=== PATIENT | male | born 1960 | race Hispanic/Latino ===

== ENCOUNTER 2017-03-17 21:00 | Inpatient (IN) | payer OTHER, MEDICAID ==
[2017-03-17 21:23] VITALS: O2SAT 98
--- NOTE | 2017-03-17 21:26 | C.PDOC ---
History Of Present Illness Pt was transferred here for psychiatric admission. Pt was medically cleared at the referring facility. Time Seen by Provider: 03/17/17 21:19 Chief Complaint (Nursing): Psychiatric Evaluation History Per: Patient Onset/Duration Of Symptoms: Days Current Symptoms Are (Timing): Still Present Modifying Factor(s): Alcohol Severity: Moderate Associated Symptoms: Depression Additional History Per: Prior Records Past Medical History Reviewed: Historical Data, Nursing Documentation, Vital Signs Vital Signs: Last Vital Signs Temp 98.2 F 03/17/17 21:23 Pulse 84 03/17/17 21:23 Resp 18 03/17/17 21:23 BP 150/92 H 03/17/17 21:23 Pulse Ox 98 03/17/17 21:26 - Medical History PMH: Hypothyroidism Other PMH: Alcohol abuse Family History: States: Unknown Family Hx - Social History Hx Alcohol Use: Yes Hx Substance Use: No - Immunization History Hx Tetanus Toxoid Vaccination: No Hx Influenza Vaccination: No Hx Pneumococcal Vaccination: No Review Of Systems Cardiovascular: Negative for: Chest Pain Respiratory: Negative for: Shortness of Breath Gastrointestinal: Negative for: Vomiting, Abdominal Pain Neurological: Negative for: Weakness Physical Exam - Physical Exam Appears: Non-toxic, No Acute Distress Skin: Normal Color, Warm, Dry Head: Atraumatic, Normacephalic Eye(s): bilateral: PERRL Neck: Normal ROM, Supple Cardiovascular: Rhythm Regular Respiratory: Normal Breath Sounds, No Accessory Muscle Use Gastrointestinal/Abdominal: Soft Extremity: Normal ROM Neurological/Psych: Oriented x3, Normal Motor, Normal Sensation ED Course And Treatment O2 Sat by Pulse Oximetry: 98 Pulse Ox Interpretation: Normal Disposition - Disposition Disposition: HOSPITALIZED Disposition Time: 21:27 Condition: STABLE - Clinical Impression Clinical Impression: Alcohol abuse, Depression Decision To Admit - Pt Status Changed To: Hospital Disposition Of: Inpatient - Admit Certification Admit to Inpatient:: After my assessment, the patient will require hospitalization for at least two midnights. This is because of the severity of symptoms shown, intensity of services needed, and/or the medical risk in this patient being treated as an outpatient. - InPatient: Physician Admission Certification: I certify that this patient requires 2 or more midnights of care for the following reason:: Psych - . Bed Request Type: Psychiatry Admitting Physician: Sina Upton Patient Diagnosis: Alcohol abuse, Depression
[2017-03-17] MEDS ORDERED: Fluticasone-Salmeterol 250-50mcg Diskus INH SCH (22:00)
--- NOTE | 2017-03-17 22:00 | PCM.BM ---
<Destinee Martínez - Last Filed: 03/17/17 21:59> Treatment Plan Problems - Problems identified on initial assessmt Depression Date Initiated: 03/17/17 Time Initiated: 21:59 Assessment reference: NA Status: Active Comment: lives in intermediate/ETOH abuse Treatment assets and liabiliti Patient Assests: cooperative, self-reliant, ADL independent, negotiates basic needs Patient Liabilities: relationship conflicts, substance abuse, medical problems - Milieu Protocol Maintain good personal hygiene: daily Encourage regular showers, daily Remind patient to perform daily oral care Conduct patient checks and document Observation sheet: Q15 minutes Maintain personal safety: every shift Educate patient to report safety concerns to staff, every shift Monitor environment for contraband/sharps Medication safety: Monitor for expected outcome, potential side effects: every shift, Assess barriers to learning: every shift, Assess readiness for medication education: every shift <Sina Upton - Last Filed: 03/25/17 11:23> - Diagnosis (1) Schizoaffective disorder Status: Acute Interventions: 03/25/17 11:23 * Assess/adjust medications daily and /or as needed * See patient on an individual basis 7x/week to assess status of hallucinations * Discuss risks, benefits, side effects and alternatives of medications *
[2017-03-17] MEDS ORDERED: Naproxen 550 mg Tab PO PRN (22:04)
[2017-03-17] MEDS ORDERED: Albuterol HFA 90 mcg/actuation (8 g) INH PRN ×2 (22:11→22:30)
[2017-03-17] MEDS: Fluticasone-Salmeterol 250-50mcg Diskus INH SCH (23:21)
[2017-03-18] MEDS: Levothyroxine 25 MCG TAB PO SCH (06:29)
[2017-03-18] MEDS: Fluticasone-Salmeterol 250-50mcg Diskus INH SCH ×2 (07:47→21:21)
[2017-03-18] MEDS: Pantoprazole 40 mg EC Tab PO SCH (09:16)
--- NOTE | 2017-03-18 15:03 | PCM.PSYCH ---
Initial Psychiatric Evaluation - Initial Psychiatric Evaluation Type of Admission: Voluntary Chief Complaint (in patient's own words): " I am tired" History of Present Illness and Precipitating Events: The patient is seen, chart reviewed and case discussed. 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 Patient was brought from a medical facility for symptoms of depression. Patient admits to history of bipolar, schizophrenia and alcohol abuse. Patient reports that he used to drink up to a case of beer on a daily basis for many years but currently drinks approximately 2 (40oz beer) daily. Patient smokes 1PPD (Tobacco) for many years. Admits to use of heroin and cocaine intranasal years ago and marijuana many years ago During the encounter, patient reports that he is doing well and denies any hallucination, suicidal ideation, homicidal ideation but admits to decrease energy. Patient had a flat affect and was very constricted Patient has been to an inpatient psychiatry 2 years ago, where he was diagnosed with bipolar Past Psych Hx: Bipolar, alcohol abuse PMHx:Hypothyroidism Family Psych Hx: denies Current Medications: Active Medications Generic Name Dose Route Start Last Admin Trade Name Freq PRN Reason Stop Dose Admin Albuterol 1 puff 03/17/17 22:30 Ventolin Hfa 90 Mcg/Actuation (8 G) INH RQ4 PRN Shortness of Breath Amlodipine Besylate 5 mg 03/18/17 10:00 03/18/17 09:16 Norvasc PO 5 mg DAILY KATHIE Administration Benztropine Mesylate 1 mg 03/17/17 22:00 03/17/17 23:22 Cogentin PO Not Given HS KATHIE Chlorpromazine 100 mg 03/17/17 22:00 03/17/17 23:22 Thorazine PO Not Given HS KATHIE Lamotrigine 200 mg 03/18/17 22:00 Lamictal PO HS KATHIE Levothyroxine Sodium 25 mcg 03/18/17 06:30 03/18/17 06:29 Synthroid PO 25 mcg DAILY@0630 KATHIE Administration Lorazepam 1 mg 03/17/17 22:11 03/18/17 09:16 Ativan PO 1 mg Q6 PRN Administration Anxiety Naproxen 550 mg 03/17/17 22:04 Anaprox Ds PO Q12 PRN Pain, moderate (4-7) Pantoprazole Sodium 40 mg 03/18/17 10:00 03/18/17 09:16 Protonix Ec Tab PO 40 mg DAILY KATHIE Administration Pneumococcal Polyvalent Vaccine 0.5 ml 03/19/17 10:10 Pneumovax 23 Vaccine IM 03/19/17 10:11 .ONCE ONE Propranolol HCl 40 mg 03/18/17 10:00 03/18/17 09:42 Inderal PO 40 mg BID KATHIE Administration Fluticasone/Salmeterol 1 puff 03/17/17 22:00 03/18/17 07:47 Advair Diskus 250/50 INH 1 puff RQ12 KATHIE Administration Past Psychiatric History - Past Psychiatric History Previous Treatment History: Inpatient Pertinent Medical Hx (Current Medical&Sleep Prob, Allergies): Allergies Allergy/AdvReac Type Severity Reaction Status Date / Time Penicillins Allergy Verified 03/17/17 21:10 Advair Diskus 250/50 1 puff INH BID 03/17/17 Aspirin 325 mg PO BID 03/17/17 Benztropine 1 mg PO HS 03/17/17 Cholecalciferol 1,000 units PO DAILY 03/17/17 Lamotrigine 200 mg PO HS 03/17/17 Levothyroxine 25 mcg PO DAILY 03/17/17 Paliperidone 234 mg IM 03/17/17 Propranolol 40 mg PO BID 03/17/17 Protonix 40 mg PO DAILY 03/17/17 Spiriva 18 mcg PO DAILY 03/17/17 Thorazine 100 mg PO HS 03/17/17 raNITIdine 150 mg PO BID 03/17/17 Review of Systems - Neurological Neurological: UNREMARKABLE - Psychiatric Psychiatric: Depression. absent: Auditory Hallucinations, Change in Appetite, Hallucinations, Homicidal Ideation, Suicidal Ideation, Visual Hallucinations, Tactile Hallucinations Mental Status Examination - Personal Presentation Personal Presentation: Looks stated age - Affect Affect: Constricted, Depressed - Motor Activity Motor Activity: Calm - Reliability in Providing Information Reliability in Providing Information: Fair - Speech Speech: Organized - Mood Mood: Depressed - Formal Thought Process Formal Thought Process: No Impairment - Obsessions/Compulsions Obsessions: No Compulsions: No - Cognitive Functions Orientation: Person, Place Sensorium: Alert Attention/Concentration: Attentive Judgement: Imparied, as evidence by: Lack of insight into illness - Strength & Assets Inventory Strength & Assets Inventory: Cooperative DSM 5 DX - DSM 5 DSM 5 Diagnosis: Bipolar disorder Schizophrenia Depression - Recommended/Plan of Treatment Treatment Recommendations and Plan of Treatment: Cogentin 1mg PO HS Thorazine 100mg PO HS Ativan 1mg PO Q6H prn Lamotrigine 20mg PO HS Hypothyroidism: Synthroid 25mcg PO daily HTN:Norvasc 5mg PO daily As needed medications Attend group activities and self-help groups [facility] and [place] Refer to IOP 33 mins Projected ELOS: 4 Prognosis: Good with treatment Discharge Plan and Discharge Criteria: Referral to IOP/ therapy - Smoking Cessation Smoking Cessation Initiated: No
[2017-03-19] MEDS: Levothyroxine 25 MCG TAB PO SCH (06:10)
[2017-03-19] MEDS: Pantoprazole 40 mg EC Tab PO SCH (09:31)
[2017-03-19] MEDS: Fluticasone-Salmeterol 250-50mcg Diskus INH SCH ×2 (09:36→21:04)
[2017-03-19] MEDS ORDERED: Influenza Vaccine 60 mcg/0.5 mL SYR (4YR UP) IM ONE (10:00)
[2017-03-19] MEDS ORDERED: Pneumococcal 23-Valent Vaccine IM ONE (10:10)
[2017-03-20] MEDS: Levothyroxine 25 MCG TAB PO SCH (06:07)
[2017-03-20] MEDS: Fluticasone-Salmeterol 250-50mcg Diskus INH SCH ×2 (08:03→20:11)
[2017-03-20] MEDS: Pantoprazole 40 mg EC Tab PO SCH (09:21)
[2017-03-20] MEDS ORDERED: Aluminum Hydroxide/Magnesium Hydroxide Susp (30 mL) PO PRN (17:58)
[2017-03-21] MEDS: Levothyroxine 25 MCG TAB PO SCH (08:06)
[2017-03-21] MEDS: Fluticasone-Salmeterol 250-50mcg Diskus INH SCH ×2 (08:07→19:10)
[2017-03-21] MEDS: Pantoprazole 40 mg EC Tab PO SCH (09:41)
--- NOTE | 2017-03-21 19:53 | PCM.PYCHPN ---
Psychiatric Progress Note - Psychiatric Progress Note Patient seen today, length of contact: 15 min Patient Chief Complaint: I am feeling little better.' Problems Identified/Issues Discussed: Patient seen and evaluated, chart reviewed and discussed with the nurse. Patient appears more organized and less paranoid and less delusional. Patient remained isolated, confined and withdrawn. Patient still appears mildly paranoid and delusional. He still reports depressed mood and at times feelings of hopelessness and helplessness. Patient is compliant with medications and denies any side effects. Symptoms are improving but need more time to stabilize. Support and psychoeducation given. Medication Change: Yes Medical Record Reviewed: Yes Mental Status Examination - Cognitive Function Orientation: Person, Place Memory: Intact Attention: WNL Concentration: Poor Association: Loose Fund of Knowledge: WNL - Mood Mood: Depressed, Anxious - Affect Affect: Constricted, Depressed - Speech Speech: Soft - Formal Thought Process Formal Thought Process: Delusions, Paranoia, Loosening of associations - Suicidal Ideation Suicidal Ideation: No - Homicidal Ideation Homicidal Ideation: No Goal/Treatment Plan - Goal/Treatment Plan Need for Continued Stay: Remain at risks for inpatient hospitalization, Severe functional impairment Progress Toward Problem(s) and Goals/Treatment Plan: Schizoaffective disorder bipolar disorder Cogentin 1mg PO HS Thorazine 100mg PO HS Ativan 1mg PO Q6H prn Lamotrigine 20mg PO HS Hypothyroidism: Synthroid 25mcg PO daily HTN:Norvasc 5mg PO daily As needed medications Attend group activities and self-help groups CBT and [place] Refer to IOP - Smoking Cessation Smoking Cessation Initiated: No
--- NOTE | 2017-03-22 08:27 | PCM.PYCHPN ---
Psychiatric Progress Note - Psychiatric Progress Note Patient seen today, length of contact: 17 MIN Patient Chief Complaint: I DON'T WANT TO LOSE MY JOB. 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 Problems Identified/Issues Discussed: SYMPTOM MANAGEMENT ABSTIENCE FROM ALCOHOLAND CIGARETTES Medical Problems: NOTHING ACUTE Diagnostic Results: REVIEWED DSM 5 Symptoms Update: SLEEPING AND EATING BETTER BETTER CONCENTRATION Medication Change: No Medical Record Reviewed: Yes Mental Status Examination - Cognitive Function Orientation: Person, Place, Situation, Time Memory: Intact Attention: WNL Concentration: WNL Association: WNL Fund of Knowledge: WNL - Mood Mood: Depressed - Affect Affect: Constricted, Depressed - Speech Speech: Appropriate - Formal Thought Process Formal Thought Process: No Impairment - Suicidal Ideation Suicidal Ideation: No - Homicidal Ideation Homicidal Ideation: No Goal/Treatment Plan - Goal/Treatment Plan Progress Toward Problem(s) and Goals/Treatment Plan: SCHIZOAFFECTIVE DISORDER: BIPOLAR TYPE [facility] LAMICTDEIDRE
[2017-03-22] MEDS: Levothyroxine 25 MCG TAB PO SCH (08:29)
[2017-03-22] MEDS: Fluticasone-Salmeterol 250-50mcg Diskus INH SCH ×3 (08:29→19:54)
--- NOTE | 2017-03-22 08:32 | PCM.PYCHPN ---
Psychiatric Progress Note - Psychiatric Progress Note Patient seen today, length of contact: 17 MIN Patient Chief Complaint: I USUALLY WAKE UP AT 6 AM AND NOW I WAKE UP AT 8 AM Problems Identified/Issues Discussed: ADHERENCE TO TREATMENT AND MEDICATION Medical Problems: NOTHING ACUTE Diagnostic Results: REVIEWED DSM 5 Symptoms Update: BETTER CONCENTRATION Medication Change: No Medical Record Reviewed: Yes Mental Status Examination - Cognitive Function Orientation: Place, Situation, Time Memory: Intact Attention: WNL Concentration: WNL Association: WNL Fund of Knowledge: WNL - Mood Mood: Depressed - Affect Affect: Constricted, Depressed - Speech Speech: Appropriate - Formal Thought Process Formal Thought Process: No Impairment - Suicidal Ideation Suicidal Ideation: No - Homicidal Ideation Homicidal Ideation: No Goal/Treatment Plan - Goal/Treatment Plan Need for Continued Stay: Discharge may exacerbated symptoms Progress Toward Problem(s) and Goals/Treatment Plan: SCHIZOAFFECTIVE DISORDER: BIPOLAR TYPE LAMICTAL THORAZINE - Smoking Cessation Smoking Cessation Initiated: Yes
[2017-03-22] MEDS: Pantoprazole 40 mg EC Tab PO SCH (09:47)
--- NOTE | 2017-03-22 14:40 | PCM.PYCHPN ---
Psychiatric Progress Note - Psychiatric Progress Note Patient seen today, length of contact: 17 MIN Patient Chief Complaint: I am feeling little better. Problems Identified/Issues Discussed: Patient seen and evaluated, chart reviewed and discussed with the nurse. As per the staff, pt started coming out of his room, but remained isolated. Patient appears more organized but still appears mildly paranoid. He still reports depressed mood but reports improvement in the feelings of hopelessness and helplessness. Patient is compliant with medications and denies any side effects. Symptoms are improving but need more time to stabilize. Support and psychoeducation given. Medication Change: No Medical Record Reviewed: Yes Mental Status Examination - Cognitive Function Orientation: Place, Situation, Time Memory: Intact Attention: WNL Concentration: Poor Association: Loose Fund of Knowledge: WNL - Mood Mood: Depressed - Affect Affect: Constricted, Depressed - Speech Speech: Appropriate - Formal Thought Process Formal Thought Process: No Impairment - Suicidal Ideation Suicidal Ideation: No - Homicidal Ideation Homicidal Ideation: No Goal/Treatment Plan - Goal/Treatment Plan Need for Continued Stay: Discharge may exacerbated symptoms Progress Toward Problem(s) and Goals/Treatment Plan: Schizoaffective disorder bipolar type Cogentin 1mg PO HS Thorazine 100mg PO HS Ativan 1mg PO Q6H prn Lamotrigine 200 mg PO HS Remeron 15 mg pO QHS Hypothyroidism: Synthroid 25mcg PO daily HTN:Norvasc 5mg PO daily As needed medications Attend group activities and self-help groups CBT and [place] Refer to IOP - Smoking Cessation Smoking Cessation Initiated: No
[2017-03-23] MEDS: Levothyroxine 25 MCG TAB PO SCH (06:25)
[2017-03-23] MEDS: Fluticasone-Salmeterol 250-50mcg Diskus INH SCH ×2 (08:01→19:43)
[2017-03-23] MEDS: Pantoprazole 40 mg EC Tab PO SCH (09:34)
--- NOTE | 2017-03-23 10:35 | PCM.PYCHPN ---
Psychiatric Progress Note - Psychiatric Progress Note Patient seen today, length of contact: 15 min Patient Chief Complaint: I am feeling jeanette Problems Identified/Issues Discussed: Patient seen and evaluated, chart reviewed and discussed with the nurse. As per the staff, patient appears more organized but he remained isolated and withdrawan. He still reports depressed mood but denies any feelings of hopelessness and helplessness. He denies any AVH. Pt ready to be discharged tomorrow to the . Patient is compliant with medications and denies any side effects. Symptoms are improving but need more time to stabilize. Support and psychoeducation given. Medication Change: No Medical Record Reviewed: Yes Mental Status Examination - Cognitive Function Orientation: Place, Situation, Time Memory: Intact Attention: WNL Concentration: WNL Association: WNL Fund of Knowledge: Poor - Mood Mood: Depressed - Affect Affect: Constricted, Depressed - Speech Speech: Appropriate - Formal Thought Process Formal Thought Process: No Impairment - Suicidal Ideation Suicidal Ideation: No - Homicidal Ideation Homicidal Ideation: No Goal/Treatment Plan - Goal/Treatment Plan Need for Continued Stay: Discharge may exacerbated symptoms Progress Toward Problem(s) and Goals/Treatment Plan: Schizoaffective disorder bipolar type Cogentin 1mg PO HS Thorazine 100mg PO HS Ativan 1mg PO Q6H prn Lamotrigine 200 mg PO HS Remeron 15 mg pO QHS Hypothyroidism: Synthroid 25mcg PO daily HTN:Norvasc 5mg PO daily As needed medications Attend group activities and self-help groups CBT and [place] Refer to IOP - Smoking Cessation Smoking Cessation Initiated: No
[2017-03-24] MEDS: Levothyroxine 25 MCG TAB PO SCH (06:42)
[2017-03-24 06:44] VITALS: TEMP 98.1
[2017-03-24] MEDS: Fluticasone-Salmeterol 250-50mcg Diskus INH SCH ×2 (08:51→19:39)
[2017-03-24] MEDS: Pantoprazole 40 mg EC Tab PO SCH (10:30)
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
[2017-03-25] MEDS: Levothyroxine 25 MCG TAB PO SCH (05:30)
[2017-03-25 06:26] VITALS: BP 105/70; PULSE 75; RESP 20
[2017-03-25] MEDS: Fluticasone-Salmeterol 250-50mcg Diskus INH SCH (07:56)
[2017-03-25] MEDS: Pantoprazole 40 mg EC Tab PO SCH (09:58)
--- NOTE | 2017-03-25 10:46 | PCM.PYCHDC ---
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 Patient was brought from a medical facility for symptoms of depression. Patient admits to history of bipolar, schizophrenia and alcohol abuse. Patient reports that he used to drink up to a case of beer on a daily basis for many years but currently drinks approximately 2 (40oz beer) daily. Patient smokes 1PPD (Tobacco) for many years. Admits to use of heroin and cocaine intranasal years ago and marijuana many years ago During the encounter, patient reports that he is doing well and denies any hallucination, suicidal ideation, homicidal ideation but admits to decrease energy. Patient had a flat affect and was very constricted. Pt remained paranoid and delusional. He appeared internally preoccupied, however, he remained calm and cooperative. Patient has been to an inpatient psychiatry 2 years ago, where he was diagnosed with bipolar Consultations:: List each consultation separately and include: 1. Reason for request. 2. Findings. 3. Follow-up Summary of Hospital Course include:: 1. Description of specific treatment plan utilized for patients during their course of treatmen. 2. Summarize the time- course for resolution of acute symptoms and/or regressed behaviors. 3. Describe issues identified and worked on during hospitalization. 4. Describe medication utilized. 5. Describe medical problems identified and treated. 6. Reassessment of suicide risk Summary of Hospital Course: During the course of his stay, patient (pt) started progressively improving and he no longer remained irritable, depressed, and paranoid. His mood and anxiety symptoms were improved and he started attending groups and meetings and started socializing. Patient denied any feelings of hopelessness, helplessness, and worthlessness, denied any problem with the sleep or appetite, denied suicidal ideation or homicidal ideation. Pt denied any auditory or visual hallucinations. Some changes were made in his current medications and patient was discharged on following medications. He tolerated these medications very well and denied any side effects. He was discharged to the '[facility] Pt is to be picked up by correction staff today at 11 a.m. and will be transported back to their facility. Pt sees [facility] for his medication at correction. - Final Diagnosis (DSM 5) Condition upon Discharge: STABLE DSM 5: Schizoaffective disorder bipolar type Disposition: HOME/ ROUTINE Follow-up Treatment Plan: Education: Pt was educated and counseled about the risks and benefits of taking and not taking medications. Pt was educated and counseled about the risks of drinking and abusing drugs. Pt was educated and counseled to go to the ER or call 911 if pt develop suicidal ideation or homicidal ideation, worsening of symptoms or severe side effects of the meds. Prescriptions/Medication Reconciliation: Albuterol HFA [Ventolin HFA 90 mcg/actuation (8 g)] 1 puff INH RQ4 PRN #1 inhaler PRN Reason: Shortness Of Breath amLODIPine [Norvasc] 5 mg PO DAILY #30 tab Benztropine [Cogentin] 1 mg PO HS #30 tab chlorproMAZINE [Thorazine] 100 mg PO HS #30 tab Fluticasone/Salmeterol 250/50 [Advair Diskus 250/50] 1 puff INH RQ12 #30 puff Lamotrigine [Lamictal] 200 mg PO HS #30 tab Levothyroxine [Synthroid] 25 mcg PO DAILY@0630 #30 tab Mirtazapine [Remeron] 15 mg PO HS #30 tab Pantoprazole [Protonix EC Tab] 40 mg PO DAILY #30 ect Propranolol [Inderal] 40 mg PO BID #60 tab - Smoking Cessation Smoking Cessation Medication prescribed: No - Antipsychotic Medications Pt discharged on 2 or more routine antipsychotic medications: No
== END 2017-03-25 11:23 | disposition home or self-care (01) | DRG 885 ==
LOC: C.ER 21:00 → C.5E 21:27
PROVIDERS: ADMIT Psychiatry & Neurology Psychiatry; ATTEND Psychiatry & Neurology Psychiatry
PROC: GZHZZZZ Group Psychotherapy (ICD-10-PCS; principal; 2017-03-17)
PROC: GZ58ZZZ Individual Psychotherapy, Cognitive-Behavioral (ICD-10-PCS; 2017-03-17)
DX: F25.0 Schizoaffective disorder, bipolar type (principal); E03.9 Hypothyroidism, unspecified; F10.10 Alcohol abuse, uncomplicated; F17.210 Nicotine dependence, cigarettes, uncomplicated; I10 Essential (primary) hypertension